=== PATIENT | female | born 1995 | race Caucasian/White ===

== ENCOUNTER 2018-01-27 16:02 | Emergency (ER) | payer MEDICAID, SELFPAY ==
[2018-01-27 16:07] VITALS: BP 147/98; PULSE 88; RESP 16; TEMP 36.8; O2SAT 97
--- NOTE | 2018-01-27 16:16 | DI.RAD_ITS ---
SYMPTOM/DIAGNOSIS: PAIN, S/P FALL LEFT ANKLE: Three views. No acute fracture or dislocation is seen. No radiopaque foreign bodies are seen in the soft tissues. There is mild soft tissue swelling about the ankle laterally. IMPRESSION: No acute fracture or dislocation.
--- NOTE | 2018-01-27 16:17 | W.ED.GENAD ---
Discharge Plan Disposition Patient Disposition: HOME Condition: Stable Discharge Details Chief Complaint: Orthopedic Clinical Impression: Left ankle sprain Primary Care Provider: Latisha Gallego ED Provider: Charly Ott Home Meds and New Rx's Prescriptions: Continue meclizine 25 MG tablet 25 mg PO DAILY PRNRF: 0 sumatriptan succinate 100 MG tablet 100 mg PO PRN PRNRF: 0 lamotrigine 100 MG tablet 150 mg PO DIRECTED RF: 0 quetiapine [Seroquel] 200 MG tablet 100 mg PO DAILY RF: 0 levalbuterol tartrate [Xopenex HFA] 15 GM HFA aerosol inhaler 2 puff Inhalation PRN PRNRF: 0 ibuprofen 600 MG tablet 600 mg PO QID PRN PRNQty: 40 RF: 0 acetaminophen [Acetaminophen Extra Strength] 500 MG tablet 500 mg PO PRN PRNRF: 0 [id number] [Excedrin Migraine] 1 EACH tablet 2 ea PO PRN PRNRF: 0 Discharge Instructions Instructions: Ankle Sprain (ED) Discharge Data Discharge Physician: Charly Ott Medical Decision Making MDM Narrative Medical decision making narrative: 22 yo female states last Wednesday she tripped as she stepped in a hole, did not hit head or have loc, but rolled the left ankle and has had pain since. I suspect she has a sprain but will xray to eval for fx. xray negative and she is bearing weight so do not feel she needs crutches. advised f/u with pcp if pain continues Differential Diagnosis sprain, strain, fx Imaging Data Radiologic Study: Attestation: I personally reviewed and interpreted this imaging study as follows: Imaging: X-Ray My impression: no acute findings Radiologist's impression: no acute findings HPI General Mode of arrival: ambulatory. Date/Time Provider Initiated Documentation: 01/27/18 16:15. Limitations to Documentation: no limitations. Information obtained by: patient. History of Present Illness 22 year old F presents to the emergency department with the chief complaint of left ankle pain, described as mild, with intensity rated at 2. Quality is described as aching, and is localized to the left and lower extremity. Patient reports no radiation. Patient started experiencing this day(s) (5) and it has been constant. Rest improves symptom(s), Movement worsens symptoms . Patient notes no other symptoms.. Patient did receive the following treatments prior to arrival, none Related Data Home Medications Medication Instructions Recorded Confirmed lamotrigine 150 mg PO DIRECTED 01/04/13 01/27/18 sumatriptan succinate 100 mg PO PRN PRN 01/04/13 01/27/18 levalbuterol tartrate [Xopenex HFA] 2 puff INHALATION PRN PRN 08/11/14 01/27/18 quetiapine [Seroquel] 100 mg PO DAILY 08/11/14 01/27/18 meclizine 25 mg PO DAILY PRN tab-cap 06/12/15 01/27/18 acetaminophen [Acetaminophen Extra 500 mg PO PRN PRN 11/16/16 01/27/18 Strength] [id number]-fecfjnmqkfjft-gjujsxch 2 ea PO PRN PRN 11/16/16 01/27/18 [Excedrin Migraine] Previous Rx's Medication Instructions Recorded ibuprofen 600 mg PO QID PRN PRN #40 tab 08/11/14 Allergies Allergy/AdvReac Type Severity Reaction Status Date / Time Sulfa (Sulfonamide AdvReac Intermediate flatus Unverified 01/27/18 16:10 Antibiotics) General Stated Complaint: Orthopedic GABE: 4 Review of Systems Review of Systems All systems reviewed & are unremarkable except as noted in HPI and below Constitutional Denies chills, Denies fever(s) and Denies weakness Eyes Patient Denies loss of vision ENT Denies change in voice Cardiovascular Denies chest pain and Denies dyspnea Respiratory Denies dyspnea Gastrointestinal Denies abdominal pain, Denies nausea and Denies vomiting Genitourinary Denies dysuria Musculoskeletal Denies joint swelling Integumentary/Breasts Denies rash Neurologic Denies loss of vision and Denies weakness Psychiatric Denies depression Endocrine Denies cold intolerance and Denies heat intolerance Allergic/Immunologic Reports urticaria [facility] Social History Smoking/Tobacco Use Status: Never Exam Const General: no acute distress Orientation: alert HENMT Head: normal to inspection Ears: external ears normal General nose exam: external nose normal Mouth: moist mucous membranes Eyes General: appearance normal, both eyes and all related structures Neck Neck: normal visual inspection Resp Effort & Inspection: normal respiratory effort and able to speak in complete sentences Cardio Rate: regular rate Skin General skin exam: no rashes or lesions noted Neuro General: alert and oriented x3 Extrem General: full ROM, normal capillary refill and other (pain over left distal fibula) Psych Mental Status: mental status grossly normal Course Vital Signs Temperature 36.8 C 01/27/18 16:07 Pulse 88 01/27/18 16:07 Respiratory Rate 16 01/27/18 16:07 Blood Pressure 147/98 H 01/27/18 16:07 Pulse Oximetry 97 01/27/18 16:07 Temperature 36.8 C 01/27/18 16:07 Pulse 88 01/27/18 16:07 Respiratory Rate 16 01/27/18 16:07 Blood Pressure 147/98 H 01/27/18 16:07 Pulse Oximetry 97 01/27/18 16:07
--- NOTE | 2018-01-27 16:50 | DI.VRAD_ITS ---
EXAM: XR Left Ankle Complete, 3 or More Views CLINICAL HISTORY: 22 years old, female; Pain; Ankle; Left; Patient HX: Pain/twisting after fall TECHNIQUE: Frontal, lateral and oblique views of the left ankle. COMPARISON: No relevant prior studies available. FINDINGS: Bones/joints: Symmetric ankle mortise. No acute fracture. No dislocation. Soft tissues: Swelling of the ankle soft tissues. IMPRESSION: No fracture. Dictated and Authenticated by: Billy Barcenas MD. Ordering:HANNAH BREWER MD
== END 2018-01-27 17:22 | disposition home or self-care (01) ==
PROVIDERS: Emergency Provider Emergency Medicine; PCP Nurse Practitioner Family
DX: S93.402A Sprain of unspecified ligament of left ankle, initial encounter (principal); W17.2XXA Fall into hole, initial encounter; X50.9XXA Other and unspecified overexertion or strenuous movements or postures, initial encounter
CPT/HCPCS: 99283; 73610

== ENCOUNTER 2018-07-22 09:58 | Outpatient (CLI) | payer MEDICAID, SELFPAY ==
[2018-07-22 10:40] LABS: Abs Immature Grans 0.01 k/cumm (0.0-0.09); Absolute Basophil Count 0.02 k/cumm (0.0-0.2); Absolute Eosinophil Count 0.11 k/cumm (0.0-0.7); Absolute Lymphocyte Count 1.84 k/cumm (1.2-3.4); Absolute Monocyte Count 0.32 k/cumm (0.11-0.7); Absolute Neutrophil Count 3.25 k/cumm (1.2-6.7); Basophils % 0.4; HCT 42.1 % (36.0-46.0); HGB 14.7 g/dL (12.0-15.5); Immature Grans % 0.2; Lymphocytes % 33.2; Mean Corp. HGB Concentration 34.9 g/dL (32.0-36.0); Mean Corpuscular Hemoglobin 31.7 pg (27.0-33.0); Mean Corpuscular Volume 90.9 fL (80-95); Mean Platelet Volume 9.2 fL (8.0-11.0); Monocytes % 5.8; Neutrophils % 58.4; Platelet Count 230 x1000/uL (130-400); RBC 4.63 m/cumm (4.00-5.20); RBC Distribution Width 12.4 % (11.7-14.6); White Blood Cell Count 5.55 k/cumm (4.4-10.8)
[2018-07-22 15:21] LABS: ALT 18 U/L (12-78); AST 14 U/L (15-37); Albumin 4.4 g/dL (3.4-5.0); Alkaline Phosphatase 78 U/L (46-116); Anion Gap 12.7 mmol/L (3-11); BUN 14 mg/dL (7-18); Bilirubin, Total 0.4 mg/dL (0.2-1.0); CO2 24.3 mmol/L (21.0-32.0); CREATININE 0.98 mg/dL (0.55-1.02); Calcium 9.4 mg/dL (8.5-10.1); Chloride 104 mmol/L (98-107); Cholesterol 183 mg/dL (50-200); Glucose 92 mg/dL (70-100); HDL Cholesterol 52 mg/dL (40-60); LDL CHOLESTEROL 118 mg/dL (<100); Sodium 141 mmol/L (136-145); TSH 1.58 uIU/mL (0.358-3.74); Total Protein 7.4 g/dL (6.4-8.2); Triglyceride 79 mg/dL (30-150)
== END 2018-07-22 10:18 ==
PROVIDERS: PCP Nurse Practitioner Family; Visit Provider Clinical Nurse Specialist Psychiatric/Mental Health
DX: F31.32 Bipolar disorder, current episode depressed, moderate (principal)
CPT/HCPCS: 36415; 80053; 80061; 83721; 84443; 85025

== ENCOUNTER 2020-03-24 10:32 | Emergency (ER) | payer MEDICAID, SELFPAY ==
[2020-03-24 10:39] VITALS: BP 130/76; PULSE 124; RESP 20; TEMP 36.4; O2SAT 98
[2020-03-24] MEDS: Lidocaine 1% Multi-Dose 50 ML VIAL (11:08)
--- NOTE | 2020-03-24 11:09 | W.ED.GENAD ---
Discharge Plan Disposition Patient Disposition: HOME Condition: Good Discharge Details Clinical Impression: Cellulitis, Abscess Primary Care Provider: Juan Godinez ED Provider: Gagan Seals Home Meds and New Rx's Prescriptions: New clindamycin HCl 150 mg capsule 450 mg PO QID 10 Days Qty: 120 RF: 0 Continued meclizine 25 MG tablet 25 mg PO DAILY PRNRF: 0 sumatriptan succinate 100 MG tablet 100 mg PO PRN PRNRF: 0 lamotrigine 100 MG tablet 200 mg PO BID RF: 0 quetiapine [Seroquel] 200 MG tablet 200 mg PO DAILY RF: 0 levalbuterol tartrate [Xopenex HFA] 15 GM HFA aerosol inhaler 2 puff Inhalation PRN PRNRF: 0 Discharge Instructions Instructions: Cellulitis (ED), Abscess (ED) Additional Instructions: At this time you have an infection of the skin, as well as an abscess. We have been able to drain the abscess. Please leave the packing in for the next few days. Please take the antibiotic as directed. Make sure to take it with a yogurt with live cultures like activity to prevent any diarrhea. It will likely come out on its own as the body heals from the inside out. Please do not get it wet or soak in any water. Please follow-up closely with your primary care provider in the next 5 days to have it reassessed. If you notice any redness, spreading redness, worsening discharge, worsening pain or fever please return immediately. If you notice any worsening of your symptoms, or any new symptoms such as vomiting, diarrhea, fever, chills, shortness of breath, chest pain, numbness, weakness, or fainting , please return immediately to the emergency department for reevaluation. Please follow up with your primary care provider as soon as possible for reassessment and reevaluation. As always, it was a pleasure participating in your medical care today. Stand Alone Forms: Work Release Referrals: Juan Godinez, [employer] [Primary Care Provider] - Medical Decision Making 25-year-old female with a past medical history of asthma, anxiety, presents today for evaluation of skin infection and abscess. Patient states that for the last few days she has noted redness in her left groin, and then patient noted yesterday that it began to drain. She was able to get a fair bit of drainage out. However it has continued to drain so she came in for further evaluation. She does admit to a fever yesterday but that has resolved today. She has not taken any Tylenol or Motrin. She denies any nausea vomiting or diarrhea. She denies any change in mental status. Or feeling confused. No other complaints at this time. Not on any current antibiotics. She denies vaginal discharge or urinary complaints. Physical exam demonstrates mild cellulitis in addition to palpable abscess half of which is draining. Notable amount of purulent drainage was removed and suctioned without complication, a second small 0.5 cm incision was made more laterally and a notable amount of drainage was removed from there as well. After purulent fluid was removed the 2 areas were packed with iodoform gauze, patient tolerated this very well. Pain notably improved/resolved. No signs of necrotizing fasciitis or Marcelo's gangrene. No fever. Patient was dealing with a notable amount of anxiety, after long discussion with her and then subsequent procedure the patient heart rate normalized. She is afebrile. No evidence of systemic illness. Patient will be started on clindamycin and given her first dose here, discussed red flags which to return, as well as the importance of close follow-up for packing removal. Additionally I discussed the case with the patient's mother. She is in agreement with the plan. I have extensively reviewed the treatment plan and discharge instructions with the patient. I have addressed all patient concerns at this time. The patient was made aware of what symptoms to monitor for that would warrant a return to the emergency department. Discussed the plan with the patient, they demonstrate verbal understanding and agreement with our assessment and plan at this time. HPI General Date/Time Provider Initiated Documentation: 03/24/20 10:32. HPI Narrative: 25-year-old female with a past medical history of asthma, anxiety, presents today for evaluation of skin infection and abscess. Patient states that for the last few days she has noted redness in her left groin, and then patient noted yesterday that it began to drain. She was able to get a fair bit of drainage out. However it has continued to drain so she came in for further evaluation. She does admit to a fever yesterday but that has resolved today. She has not taken any Tylenol or Motrin. She denies any nausea vomiting or diarrhea. She denies any change in mental status. Or feeling confused. No other complaints at this time. Not on any current antibiotics. She denies vaginal discharge or urinary complaints. Related Data Home Medications Medication Instructions Recorded Confirmed lamotrigine 200 mg PO BID 01/04/13 03/24/20 sumatriptan succinate 100 mg PO PRN PRN 01/04/13 03/24/20 levalbuterol tartrate [Xopenex HFA] 2 puff INHALATION PRN PRN 08/11/14 03/24/20 quetiapine [Seroquel] 200 mg PO DAILY 08/11/14 03/24/20 meclizine 25 mg PO DAILY PRN tab-cap 06/12/15 03/24/20 clindamycin HCl 450 mg PO QID 10 Days #120 cap 03/24/20 Previous Rx's Medication Instructions Recorded clindamycin HCl 450 mg PO QID 10 Days #120 cap 03/24/20 Allergies Allergy/AdvReac Type Severity Reaction Status Date / Time Sulfa (Sulfonamide AdvReac Intermediate flatus Unverified 03/24/20 10:47 Antibiotics) General Stated Complaint: Cellulitis GABE: 3 Review of Systems All systems reviewed & are unremarkable except as noted in HPI and below PFSH Social History Smoking/Tobacco Use Status: Never Smoking risk assessment performed?: Yes Alcohol Intake: never Drug use: Never Substance use type: does not use Do you feel safe at home: Yes Do you feel safe in your relationship?: Yes Exam Narrative Exam Narrative: 1.Const: Well-nourished, Well-developed, appearing stated age 2.Eyes: PERRL, no conjunctival injection, and symmetrical lids. 3.ENT: Atraumatic external nose and ears. Moist MM. Neck: Symmetric, trachea midline, No thyromegaly. 4.CVS: +S1/S2, No murmurs or gallops. Peripheral pulses 2+ and equal in all extremities. Brisk capillary refill in all extremities. 5.RESP: Unlabored respiratory effort. Clear to auscultation bilaterally. No wheezes rales or rhonchi 6.GI: Soft, Nontender/Nondistended, No hepatosplenomegaly. No guarding or rebound. 7.MSK: Normocephalic/Atraumatic, Extremities w/o deformity or ttp No cyanosis or clubbing, Normal movement of all extremities 8.Skin: The patient's left proximal thigh/groin demonstrates mild redness of the leg fully 5 to 6 cm, and a width of 12 to 14 cm. There is a single draining lesion with purulent discharge noted. Medial aspect just about midline. Additionally there is mild firmness that extends slightly more laterally. Bedside ultrasound shows a small amount of fluid collection in that area as well in addition to cobblestoning. No crepitus, no subcutaneous crepitus. No skin breakdown otherwise. No active or passive pain with movement of the muscles of the thigh or groin. 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 Sensation grossly intact, no focal neurologic deficits. 10.Psych: (AAO) x3. Appropriate mood and affect Course Vital Signs Vital signs: Vital Signs Temperature 36.4 C L 03/24/20 10:39 Pulse 124 H 03/24/20 10:39 Respiratory Rate 03/24/20 10:39 Blood Pressure 130/76 03/24/20 10:39 Pulse Oximetry 98 03/24/20 10:39 Temperature 36.4 C L 03/24/20 10:39 Temperature Source Skin 03/24/20 10:39 Pulse 124 H 03/24/20 10:39 Respiratory Rate 03/24/20 10:39 Respiratory Effort Non-Labored 03/24/20 10:45 Blood Pressure 130/76 03/24/20 10:39 Blood Pressure Position Sitting 03/24/20 10:39 Pulse Oximetry 98 03/24/20 10:39 Oxygen Delivery Method Room Air 03/24/20 10:39 Oxygen Flow Rate 0 03/24/20 10:39 Pain Level 6 03/24/20 10:39 Lab/Test Results Lab/Test Results: 03/24/20 10:50 Abdomen Wound Culture - Pending 03/24/20 10:50 Abdomen Gram Stain - Pending Procedures Abscess I/D Site: Abdomen Side (if applicable): Left Local Anesthetic: Lidocaine 1% Amount of anesthesia used (mL): 5 Technique: Incised with #11 Blade Amount of fluid expressed (mL): 10 Irrigation: Yes Packing used?: Iodoform
--- NOTE | 2020-03-24 11:10 | NUR.NOTE ---
Nursing Note:assisted provider with I&D lower abdomen.
[2020-03-24] MEDS: Clindamycin 150 MG CAP, 12 CAPS/BTL 450 MG PO (11:18)
[2020-03-24 11:24] VITALS: BP 106/65; PULSE 108; RESP 18; TEMP 37.2; O2SAT 97
[2020-03-24 11:34] VITALS: BP 106/65; PULSE 108; RESP 18; TEMP 37.2; O2SAT 97
== END 2020-03-24 11:30 | disposition home or self-care (01) ==
LOC: ER 11:24
PROVIDERS: Emergency Provider Student in an Organized Health Care Education/Training Program; PCP Nurse Practitioner Family
DX: L03.314 Cellulitis of groin (principal); L02.214 Cutaneous abscess of groin; B95.61 Methicillin susceptible Staphylococcus aureus infection as the cause of diseases classified elsewhere
CPT/HCPCS: 10061; 87077; 87070; 87186; 87205

== ENCOUNTER 2020-03-25 18:31 | Inpatient (IN) | payer MEDICAID, SELFPAY ==
[2020-03-25 18:38] VITALS: BP 127/78; PULSE 104; RESP 20; TEMP 36.1; O2SAT 99
--- NOTE | 2020-03-25 18:48 | ED.GENADUL_ITS ---
Discharge Plan Disposition Patient Disposition: [facility] INPATIENT Condition: Stable Discharge Details Clinical Impression: Cellulitis, Failure of outpatient treatment Admit Date/Time: 03/25/20 19:18 Admit Provider: Nathan Connolly Attending Provider: Nathan Connolly Primary Care Provider: Juan Godinez ED Provider: Gagan Seals Medical Decision Making 25-year-old female with a past medical history of anxiety, bipolar, who presents today for wound recheck. I saw the patient yesterday she had redness and cellulitis and an abscess on her lower abdomen in the superficial adipose. Incision and drainage in 2 locations included a notable amount of purulence, she was started on clindamycin, and she has been taking them every 6 hours 450 mg as directed. Unfortunately in spite of this she has had worsening drainage spreading of the redness and worsening pain. She admits to chills but has remained afebrile. She denies any abdominal pain aside for the superficial pain on the pannus. Exam demonstrates worsening redness spreading of the redness lateral, continued drainage, slight worsening induration. No fluctuance there. No indication for repeat incision and drainage as the 2 sites are actively draining. Cultures just returned positive for staph areas, pending sensitivities. Patient has chills but no fever. She is mildly tachycardic, however she does have a notable component of anxiety which was present on her last visit 2. No subcutaneous crepitus, abdominal tenderness, no signs or symptoms of necrotizing fasciitis. I feel that the patient's symptoms are indicative of mild cellulitis unresponsive to outpatient management. I do feel she would benefit from IV antibiotics and inpatient steroids with IV antibiotics. We will gently rehydrate, contact the hospitalist for admission. I did contact the patient's mother as well and discussed the case with her. Both in agreement. Discussed the case with Dr. Connolly, who agrees with admission. I have extensively reviewed the treatment plan with the patient. I have addressed all patient concerns at this time. I have also discussed the plan with the admitting physician and they agree with the current assessment and plan and have agreed to assume responsibility for the patient. All parties demonstrate verbal understanding and agreement with our assessment and plan at this time. HPI General Date/Time Provider Initiated Documentation: 03/25/20 18:34 . HPI Narrative: 25-year-old female with a past medical history of anxiety, bipolar, who presents today for wound recheck. I saw the patient yesterday she had redness and cellulitis and an abscess on her lower abdomen in the superficial adipose. Incision and drainage in 2 locations included a notable amount of purulence, she was started on clindamycin, and she has been taking them every 6 hours 450 mg as directed. Unfortunately in spite of this she has had worsening drainage spreading of the redness and worsening pain. She admits to chills but has remained afebrile. She denies any abdominal pain aside for the superficial pain on the pannus. Related Data Home Medications Medication Instructions Recorded Confirmed lamotrigine 200 mg PO BID 01/04/13 03/25/20 sumatriptan succinate 100 mg PO PRN PRN 01/04/13 03/25/20 levalbuterol tartrate [Xopenex HFA] 2 puff INHALATION PRN PRN 08/11/14 03/25/20 quetiapine [Seroquel] 200 mg PO HS 08/11/14 03/25/20 meclizine 25 mg PO DAILY PRN tab-cap 06/12/15 03/25/20 clindamycin HCl 450 mg PO QID 10 Days #120 cap 03/24/20 03/25/20 magnesium oxide 500 mg PO HS 03/25/20 03/25/20 riboflavin (vitamin B2) [Vitamin 200 mg PO BID 03/25/20 03/25/20 B-2] Previous Rx's Medication Instructions Recorded clindamycin HCl 450 mg PO QID 10 Days #120 cap 03/24/20 Allergies Allergy/AdvReac Type Severity Reaction Status Date / Time Sulfa (Sulfonamide AdvReac Intermediate flatus Unverified 03/25/20 18:42 Antibiotics) General Stated Complaint: Cellulitis GABE: 3 Review of Systems All systems reviewed & are unremarkable except as noted in HPI and below PFSH Social History Smoking/Tobacco Use Status: Never Smoking risk assessment performed?: Yes Alcohol Intake: never Drug use: Never Substance use type: does not use Do you feel safe at home: Yes Do you feel safe in your relationship?: Yes Exam Narrative Exam Narrative: 1.Const: Well-nourished, Well-developed, appearing stated age 2.Eyes: PERRL, no conjunctival injection, and symmetrical lids. 3.ENT: Atraumatic external nose and ears. Moist MM. Neck: Symmetric, trachea midline, No thyromegaly. 4.CVS: +S1/S2, No murmurs or gallops. Peripheral pulses 2+ and equal in all extremities. Brisk capillary refill in all extremities. 5.RESP: Unlabored respiratory effort. Clear to auscultation bilaterally. No wheezes rales or rhonchi 6.GI: Soft, Nontender/Nondistended, No hepatosplenomegaly. No guarding or rebound. 7.MSK: Normocephalic/Atraumatic, Extremities w/o deformity or ttp No cyanosis or clubbing, Normal movement of all extremities 8.Skin: The patient's redness is still present but it is actually extended both superiorly and laterally compared to what was left alone a few centimeters. There is still drainage coming from both incision site, and there is also slight worsening of induration laterally from the lateralmost incision site. No subcutaneous crepitus, no abdominal tenderness, just the superficial tenderness of the skin. 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 Sensation grossly intact, no focal neurologic deficits. 10.Psych: (AAO) x3. Appropriate mood and affect Course Vital Signs Vital signs: Vital Signs Temperature 36.1 C L 03/25/20 18:38 Pulse 104 H 03/25/20 18:38 Respiratory Rate 20 03/25/20 18:38 Blood Pressure 127/78 03/25/20 18:38 Pulse Oximetry 99 03/25/20 18:38 Temperature 36.1 C L 03/25/20 18:38 Temperature Source Skin 03/25/20 18:38 Pulse 104 H 03/25/20 18:38 Respiratory Rate 20 03/25/20 18:38 Respiratory Effort Non-Labored 03/25/20 18:44 Blood Pressure 127/78 03/25/20 18:38 Blood Pressure Position Sitting 03/25/20 18:38 Pulse Oximetry 99 03/25/20 18:38 Oxygen Delivery Method Room Air 03/25/20 18:38 Oxygen Flow Rate 0 03/25/20 18:38 Lab/Test Results Lab/Test Results: 03/25/20 18:43 Blood Blood Culture - Pending 03/25/20 18:43 Blood Blood Culture - Pending
--- NOTE | 2020-03-25 19:08 | HPE_ITS ---
Date of service: 03/25/20 Time of Service: 19:08 Assessment and Plan Assessment and plan (1) Abscess: Status: Acute Assessment and plan: Extensive SQ abcess of pannus, possible MRSA. Will continue Vanco and await sensitivities. Per ER verbal to myself the I&D entailed extensive exploration of wound for pockets so at this point I don't think we need imaging or further exploration. But if fails to respond promptly to IV Vanco will image and obtain surgical consult. History of Present Illness History of Present Illness Chief Complaint: cellulitis Narrative: 25 female seen yesterday with abcess/cellulitis of lower abdominal pannus (thinks it started with ingrown hair). 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 Returns with worsening redness and induration. Note that cxx from yesterday return Staph aureues, sensitivities pending. Ordered for loading dos Vanoc and admitted for further management. Note that all labs are pending at this time. Review of Systems All systems reviewed & are unremarkable except as noted in HPI and below PFSH Social History Smoking/Tobacco Use Status: Never Smoking risk assessment performed?: Yes Alcohol Intake: never Drug use: Never Substance use type: does not use Do you feel safe at home: Yes Do you feel safe in your relationship?: Yes Meds Home Medications and Allergies Home Medications Medication Instructions Recorded Confirmed Type lamotrigine 200 mg PO BID 01/04/13 03/25/20 History sumatriptan succinate 100 mg PO PRN PRN 01/04/13 03/25/20 History levalbuterol tartrate [Xopenex HFA] 2 puff INHALATION PRN PRN 08/11/14 03/25/20 History quetiapine [Seroquel] 200 mg PO HS 08/11/14 03/25/20 History meclizine 25 mg PO DAILY PRN tab-cap 06/12/15 03/25/20 History clindamycin HCl 450 mg PO QID 10 Days #120 cap 03/24/20 03/25/20 Rx magnesium oxide 500 mg PO HS 03/25/20 03/25/20 History riboflavin (vitamin B2) [Vitamin 200 mg PO BID 03/25/20 03/25/20 History B-2] Allergies Allergy/AdvReac Type Severity Reaction Status Date / Time Sulfa (Sulfonamide AdvReac Intermediate flatus Unverified 03/25/20 18:42 Antibiotics) Exam Narrative Exam Narrative: 127/78, 104, 36.1, 20, 99% RA. HEENT unremarkable; neck supple; lungs clear, heart tachy/regualr w/o MRG; abdomen etnesive erythema and induration along lower abdomen with some extension to left groin. Incisions draining, no crepitus, quite tender. Neuro Ox3, very anxious, nonfocal Results Labs Result diagrams: 03/25/20 18:42 03/25/20 18:42 Last Vital Signs Temp 36.1 C L 03/25/20 18:38 Pulse 104 H 03/25/20 18:38 Resp 20 03/25/20 18:38 BP 127/78 03/25/20 18:38 Pulse Ox 99 03/25/20 18:38 COVID-19 Screening Have you, or household traveled for leisure in last 14 days?: No
[2020-03-25] MEDS: Ketorolac 30 MG/ML VIAL IVP (19:26)
[2020-03-25] MEDS: Normal Saline 1,000 ML 1000 ML IV (19:28)
[2020-03-25 19:31] LABS: Abs Immature Grans 0.07 10^3/uL (0.0-0.06); Absolute Basophil Count 0.02 10^3/uL (0.0-0.2); Absolute Eosinophil Count 0.12 10^3/uL (0.0-0.7); Absolute Lymphocyte Count 1.98 10^3/uL (1.2-3.4); Absolute Monocyte Count 0.73 10^3/uL (0.1-0.8); Absolute Neutrophil Count 8.68 10^3/uL (1.2-6.7); Basophils % 0.2; HCT 36.6 % (36.0-46.0); HGB 12.2 g/dL (11.2-15.7); Immature Grans % 0.6; Lymphocytes % 17.1; MCHC 33.3 % (32.0-36.0); MCV 92.9 fL (80-95); MPV 9.4 fL (8.0-11.0); Monocytes % 6.3; Neutrophils % 74.8; Nucleated RBC 0 %; Platelet Count 270 10^3/uL (130-400); RBC 3.94 10^6/uL (3.93-5.22); RDW 11.9 % (11.7-14.6); RDW-SD 40.5 fL
[2020-03-25 19:50] LABS: ALT 13 U/L (14-59); AST 8 U/L (15-37); Albumin 3.5 g/dL (3.4-5.0); Alkaline Phosphatase 82 U/L (46-116); Anion Gap 8.1 mmol/L (3-11); BUN 16 mg/dL (7-18); Bilirubin, Total 0.3 mg/dL (0.2-1.0); CO2 28.9 mmol/L (21.0-32.0); CREATININE 0.93 mg/dL (0.55-1.02); Calcium 8.7 mg/dL (8.5-10.1); Chloride 103 mmol/L (98-107); Glucose 111 mg/dL (74-106); Potassium 3.2 mmol/L (3.5-5.1); Sodium 140 mmol/L (136-145); Total Protein 7.5 g/dL (6.4-8.2)
[2020-03-25 21:09] VITALS: BP 107/72; PULSE 98; RESP 18; TEMP 36.6; O2SAT 100
[2020-03-25 21:10] VITALS: BP 107/72; PULSE 97; RESP 18; TEMP 36.6; O2SAT 100
[2020-03-25] MEDS: Magnesium Oxide 400 MG TAB PO (22:49)
[2020-03-25] MEDS: Acetaminophen 325 MG TAB 650 MG PO (22:49)
[2020-03-25] MEDS: Potassium Chloride 20 MEQ TABCR PO (22:49)
[2020-03-25] MEDS: QUEtiapine 25 MG TAB 200 MG PO (22:50)
[2020-03-25] MEDS: lamoTRIgine 25 MG TAB 200 MG PO (22:50)
[2020-03-26 07:13] VITALS: BP 104/71; PULSE 89; RESP 16; TEMP 36.6; O2SAT 99
[2020-03-26 07:28] LABS: CREATININE 0.91 mg/dL (0.55-1.02)
[2020-03-26 08:05] LABS: Abs Immature Grans 0.07 10^3/uL (0.0-0.06); Absolute Basophil Count 0.03 10^3/uL (0.0-0.2); Absolute Eosinophil Count 0.09 10^3/uL (0.0-0.7); Absolute Lymphocyte Count 1.22 10^3/uL (1.2-3.4); Basophils % 0.3; HCT 32.3 % (36.0-46.0); HGB 10.8 g/dL (11.2-15.7); Immature Grans % 0.8; Lymphocytes % 13.4; MCH 31.1 pg (27.0-33.0); MCHC 33.4 % (32.0-36.0); MCV 93.1 fL (80-95); MPV 9.6 fL (8.0-11.0); Monocytes % 7.7; Neutrophils % 76.8; Nucleated RBC 0 %; Platelet Count 257 10^3/uL (130-400); RBC 3.47 10^6/uL (3.93-5.22); RDW 12.1 % (11.7-14.6); RDW-SD 41.6 fL; WBC 9.11 10^3/uL (4.4-10.8)
[2020-03-26 08:12] LABS: Anion Gap 6.1 mmol/L (3-11); BUN 13 mg/dL (7-18); CO2 27.9 mmol/L (21.0-32.0); Calcium 8.1 mg/dL (8.5-10.1); Chloride 110 mmol/L (98-107); Glucose 88 mg/dL (74-106); Sodium 144 mmol/L (136-145)
[2020-03-26 08:26] LABS: C-Reactive Protein 19.94 mg/dL (0.0-0.3)
--- NOTE | 2020-03-26 08:47 | PDOC.CMIN ---
- If Service Date Differs Date of service: 03/26/20 Time of Service: 17:40 Care Management Initial Assess REASON FOR HOSPITALIZATION:: Absess, cellulitis PAST MEDICAL HISTORY/PAST SURGICAL HISTORY:: 25 female seen yesterday with abcess/cellulitis of lower abdominal pannus (thinks it started with ingrown hair). S/p I&D one day [employer] and started on Clindamycin 450 q6. Returns with worsening redness and induration. Note that cxx from yesterday return Staph aureues, sensitivities pending. Ordered for loading dos Vanoc and admitted for further management. PREVIOUS FUNCTIONAL STATUS/SOCIAL/FAMILY SUPPORTS:: Jaylyn resides in [place], [place] with her parents. She is employed at [employer]. She is independent at baseline in the community. CURRENT FUNCTIONAL STATUS:: Up independently in room, pain controlled. CM continues to follow. Has patient been provided with info about the portal/API?: Yes Did the patient sign up for the portal?: No CODE STATUS:: Full Code INSURANCE COVERAGE / FINANCIAL ISSUES:: Medicaid CURRENT HOME/COMMUNITY SERVICES/EQUIPMENT:: None currently. PRIMARY CARE PHYSICIAN:: Juan Godinez. POTENTIAL DISCHARGE NEEDS:: Review discharge instructions, discuss Ask Me Three. PATIENT/FAMILY EDUCATION NEEDS:: Review discharge instructions, discuss Ask Me Three. ANTICIPATED BARRIERS TO DISCHARGE:: None identified. TRANSPORTATION:: Via private vehicle with family. PLAN:: Awaiting lab results and cultures to determine antibiotic therapy plan, per MD. CM continues to follow. Anticiate Jaylyn will return home when ready per MD on a oral course of antibiotics or to the infusion room; dependent on course, duration and frequency of antibiotics.
[2020-03-26] MEDS: lamoTRIgine 100 MG TAB 200 MG PO ×2 (08:53→21:10)
[2020-03-26 09:51] LABS: Procalcitonin 0.1 ng/mL
[2020-03-26] MEDS: ceFAZolin 2 GM/50 ML BAG IVPB ×2 (11:19→18:05)
--- NOTE | 2020-03-26 11:23 | PHA.REVIEW ---
Pharmacy Admission Review - Admission Clinical Review (Last Reviewed 03/25/20 @ 19:11 by Nathan Connolly MD) Cellulitis (Acute) Abscess (Acute) Failure of outpatient treatment (Acute) Sulfa (Sulfonamide Antibiotics) Adverse Reaction (Intermediate, Unverified 03/25/20 18:42) flatus Height 5 ft 6 in Weight 81.647 kg - Renal Dosing Renal Dosing: BUN 13 mg/dL (7-18) 03/26/20 07:10 Creatinine 0.91 mg/dL (0.55-1.02) 03/26/20 07:10 Medications needing adjustments: Reviewed (Crcl ~86.9 mL/min current meds okay) - Anticoagulation Anticoagulation: Hgb 10.8 g/dL (11.2-15.7) L 03/26/20 07:10 Hct 32.3 % (36.0-46.0) L 03/26/20 07:10 Plt Count 257 10^3/uL (130-400) 03/26/20 07:10 Creatinine 0.91 mg/dL (0.55-1.02) 03/26/20 07:10 DVT Prohphylaxis: Reviewed - Opiate Usage Evaluate Pain Scale/Pains Meds: Reviewed Scheduled Bowel Reg ordered if on Opiates?: No (will mention to provider) - Relevant Labs Sodium 144 mmol/L (136-145) 03/26/20 07:10 Potassium 4.0 mmol/L (3.5-5.1) D 03/26/20 07:10 Chloride 110 mmol/L (98-107) H 03/26/20 07:10 C-Reactive Protein 19.94 mg/dL (0.0-0.3) H 03/26/20 07:10 Electrolytes, C-Reactive P, ESR: Reviewed - DM Control DM Control: Glucose 88 mg/dL (74-106) 03/26/20 07:10 Hemoglobin A1c 5.0 % (<5.7) 03/26/20 07:10 Insulin Dosing: N/A (elevated on admission, within normal limits this morning A1c 5) - Heart Failure/RI EF%, ROGERIO's, B-Blockers, Diuretics: N/A - BP Control BP Control: Blood Pressure 104/71 If elevated: N/A - Qtc Review If Elevated: N/A - IV to PO Switch IV Medications: Reviewed - Home Meds Home Med List reviewed: Reviewed Relevent Home Meds Not ordered & why?: clindamycin(failed this/other abx ordered), levalbuterol (PRN), meclizine (PRN), sumatriptan (PRN) - Current meds Current Medication Order Review: Reviewed - Comments Comments/Follow Ups: Watch VS, labs and for med changes (need of BM meds) Antibiotic Activity - Pharmacy Antibiotic Review Pharmacy Antibiotic Activity: Antibiotic de-escalation (Wound culture from 03/24 growing staph. Vanco changed to cefazolin based due sensitivities. Blood and urine cultures pending.)
[2020-03-26 11:45] LABS: Bilirubin Negative (Negative); Blood Large (Negative); Clarity Clear (Clear); Glucose Negative (Negative); Ketones Negative (Negative); Leukocyte Esterase Negative (Negative); Nitrite Negative (Negative); Urobilinogen 0.2 EU/dL (Up TO 0.2)
[2020-03-26 11:56] LABS: *AMPHETAMINES SCREEN URINE Negative (Negative); *BARBITURATES SCREEN URINE Negative (Negative); *BENZODIAZEPINES SCREEN URINE Negative (Negative); Cannabinoids THC Negative (Negative); Cocaine Screen,Urine Negative (Negative); METHADONE URINE SCREEN Negative (Negative); OPIATES URINE SCREEN Negative (Negative)
[2020-03-26 11:57] LABS: Tricyclic Antidepressants Negative (Negative)
[2020-03-26 11:58] LABS: HCG Qual (Urine) Negative
[2020-03-26 12:01] LABS: Bacteria Few HPF (Negative); C & S Indicated? C&S Done As Ordered; Casts Negative LPF (Negative); Crystals Negative HPF (Negative); Epithelial Cells Few HPF (Negative); Mucus Negative (Negative); RBC 0-2 HPF (0-2); WBC 0-2 HPF (0-5)
[2020-03-26 15:03] LABS: COVID-19 RT-PCR UVMMC Result Negative (Negative)
--- NOTE | 2020-03-26 15:10 | W.PM.PROGNOT ---
Date of Service Date of service: 03/26/20 Time of Service: 15:11 Assessment and Plan Assessment and plan (1) Abdominal wall cellulitis: Status: Acute Assessment and plan: As we know the results of the wound culture from I&D at the ED (c/w MSSA), it is safe to assume that the culprit of this is the same. Antibiotics switched to cefazolin. Continue monitoring wounds, WBC, blood cultures. (2) Abscess: Status: Acute Assessment and plan: s/p I&D prior to admission in the ED. Wound C&S c/w MSSA. As above. (3) Bipolar disorder: Status: Chronic Assessment and plan: Continue outpatient medications (seroquel, lamictal) (4) Anxiety disorder: Status: Chronic Assessment and plan: Continue outpatient therapy. (5) COVID-19 ruled out: Status: Ruled-out (6) DVT prophylaxis: Status: Acute Assessment and plan: Not required in an ambulatory 25 year old female. (7) Discharge planning issues: Status: Acute Assessment and plan: Full code. Admit to inpatient status. Subjective Subjective Interval history since last seen: Ms Garrett feels better today. She denies dizziness, chest pain, shortness of breath, nausea. Pain is controlled. Yellow discharge from one of the wounds; the other one is dry. Afebrile. COVID-19 neg. Exam Narrative Exam Narrative: General: Very pleasant female, sitting up in bed, in no distress HEENT: EOMI, MMM Heart: RRR, no m/r/g Lungs: CTAB Abdomen: pannus with diffuse erythema, seemingly worse in LLQ, LLQ wound packed Extremities: no edema BLEs Objective Last Vital Signs Temp 36.6 C 03/26/20 07:13 Pulse 89 03/26/20 07:13 Resp 16 03/26/20 07:13 BP 104/71 03/26/20 07:13 Pulse Ox 99 03/26/20 07:13 Laboratory Results - last 24 hr 03/25/20 03/25/20 03/25/20 19:19 19:19 20:08 WBC 11.60 H RBC 3.94 Hgb 12.2 Hct 36.6 MCV 92.9 MCH 31.0 MCHC 33.3 RDW 11.9 Plt Count 270 MPV 9.4 Immature Gran % 0.6 Neutrophils % 74.8 Lymphocytes % 17.1 Monocytes % 6.3 Eosinophils % 1.0 Basophils % 0.2 Nucleated RBC % 0 Absolute Neutrophils 8.68 H Absolute Lymphocytes 1.98 Absolute Monocytes 0.73 Absolute Eosinophils 0.12 Absolute Basophils 0.02 Sodium 140 Potassium 3.2 L Chloride 103 Carbon Dioxide 28.9 Anion Gap 8.1 BUN 16 Creatinine 0.93 Estimated GFR/1.73 m2 >= 60.00 Glucose 111 H Hemoglobin A1c Calcium 8.7 Total Bilirubin 0.3 AST 8 L ALT 13 L Alkaline Phosphatase 82 C-Reactive Protein Total Protein 7.5 Albumin 3.5 Procalcitonin Urine Color Urine Clarity Urine pH Ur Specific [place] Urine Protein Urine Ketones Urine Blood Urine Nitrite Urine Bilirubin Urine Urobilinogen Ur Leukocyte Esterase Urine RBC Urine WBC Ur Epithelial Cells Urine Crystals Urine Bacteria Urine Casts Urine Mucus Ur Culture Indicated? Urine Glucose Urine HCG, Qual Urine Opiates Screen Urine Methadone Screen Ur Barbiturates Screen Ur Tricyclics Screen Ur Amphetamines Screen U Benzodiazepines Scrn Urine Cocaine Screen Ur THC Screen COVID-19 PCR Negative Nasopharyn COVID-19 PCR Not Applicable Ref Test Perform Site [facility] 03/26/20 03/26/20 03/26/20 07:10 07:10 07:10 WBC 9.11 RBC 3.47 L Hgb 10.8 L Hct 32.3 L MCV 93.1 MCH 31.1 MCHC 33.4 RDW 12.1 Plt Count 257 MPV 9.6 Immature Gran % 0.8 Neutrophils % 76.8 Lymphocytes % 13.4 Monocytes % 7.7 Eosinophils % 1.0 Basophils % 0.3 Nucleated RBC % 0 Absolute Neutrophils 7.00 H Absolute Lymphocytes 1.22 Absolute Monocytes 0.70 Absolute Eosinophils 0.09 Absolute Basophils 0.03 Sodium 144 Potassium 4.0 D Chloride 110 H Carbon Dioxide 27.9 Anion Gap 6.1 BUN 13 Creatinine 0.91 Estimated GFR/1.73 m2 >= 60.00 Glucose 88 Hemoglobin A1c Calcium 8.1 L Total Bilirubin AST ALT Alkaline Phosphatase C-Reactive Protein 19.94 H Total Protein Albumin Procalcitonin 0.1 Urine Color Urine Clarity Urine pH Ur Specific [place] Urine Protein Urine Ketones Urine Blood Urine Nitrite Urine Bilirubin Urine Urobilinogen Ur Leukocyte Esterase Urine RBC Urine WBC Ur Epithelial Cells Urine Crystals Urine Bacteria Urine Casts Urine Mucus Ur Culture Indicated? Urine Glucose Urine HCG, Qual Urine Opiates Screen Urine Methadone Screen Ur Barbiturates Screen Ur Tricyclics Screen Ur Amphetamines Screen U Benzodiazepines Scrn Urine Cocaine Screen Ur THC Screen COVID-19 PCR Nasopharyn COVID-19 PCR Ref Test Perform Site 03/26/20 03/26/20 03/26/20 07:10 11:10 11:10 WBC RBC Hgb Hct MCV MCH MCHC RDW Plt Count MPV Immature Gran % Neutrophils % Lymphocytes % Monocytes % Eosinophils % Basophils % Nucleated RBC % Absolute Neutrophils Absolute Lymphocytes Absolute Monocytes Absolute Eosinophils Absolute Basophils Sodium Potassium Chloride Carbon Dioxide Anion Gap BUN Creatinine Estimated GFR/1.73 m2 Glucose Hemoglobin A1c 5.0 Calcium Total Bilirubin AST ALT Alkaline Phosphatase C-Reactive Protein Total Protein Albumin Procalcitonin Urine Color Yellow Urine Clarity Clear Urine pH 7.0 Ur Specific [place] 1.010 Urine Protein Negative Urine Ketones Negative Urine Blood Large H Urine Nitrite Negative Urine Bilirubin Negative Urine Urobilinogen 0.2 Ur Leukocyte Esterase Negative Urine RBC 0-2 Urine WBC 0-2 Ur Epithelial Cells Few Urine Crystals Negative Urine Bacteria Few Urine Casts Negative Urine Mucus Negative Ur Culture Indicated? C&s done as ordered Urine Glucose Negative Urine HCG, Qual Urine Opiates Screen Negative Urine Methadone Screen Negative Ur Barbiturates Screen Negative Ur Tricyclics Screen Negative Ur Amphetamines Screen Negative U Benzodiazepines Scrn Negative Urine Cocaine Screen Negative Ur THC Screen Negative COVID-19 PCR [facility] COVID-19 PCR Ref Test Perform Site 03/26/20 11:10 WBC RBC Hgb Hct MCV MCH MCHC RDW Plt Count MPV Immature Gran % Neutrophils % Lymphocytes % Monocytes % Eosinophils % Basophils % Nucleated RBC % Absolute Neutrophils Absolute Lymphocytes Absolute Monocytes Absolute Eosinophils Absolute Basophils Sodium Potassium Chloride Carbon Dioxide Anion Gap BUN Creatinine Estimated GFR/1.73 m2 Glucose Hemoglobin A1c Calcium Total Bilirubin AST ALT Alkaline Phosphatase C-Reactive Protein Total Protein Albumin Procalcitonin Urine Color Urine Clarity Urine pH Ur Specific [place] Urine Protein Urine Ketones Urine Blood Urine Nitrite Urine Bilirubin Urine Urobilinogen Ur Leukocyte Esterase Urine RBC Urine WBC Ur Epithelial Cells Urine Crystals Urine Bacteria Urine Casts Urine Mucus Ur Culture Indicated? Urine Glucose Urine HCG, Qual Negative Urine Opiates Screen Urine Methadone Screen Ur Barbiturates Screen Ur Tricyclics Screen Ur Amphetamines Screen U Benzodiazepines Scrn Urine Cocaine Screen Ur THC Screen COVID-19 PCR Nasopharyn COVID-19 PCR Ref Test Perform Site
--- NOTE | 2020-03-26 15:59 | CHAPLAIN ---
I had a short visit with Jaylyn to introduce myself and explain my role. I'll continue to visit.
[2020-03-26] MEDS: Acetaminophen 325 MG TAB 650 MG PO ×2 (18:10→21:10)
[2020-03-26] MEDS: QUEtiapine 100 MG TAB 200 MG PO (21:09)
[2020-03-26] MEDS: Normal Saline Flush 10 ML SYR IVP (21:11)
[2020-03-26 21:29] VITALS: BP 113/76; PULSE 86; RESP 18; TEMP 36.9; O2SAT 99
[2020-03-26] MEDS: Magnesium Oxide 400 MG TAB PO (21:33)
[2020-03-27] MEDS: ceFAZolin 2 GM/50 ML BAG IVPB ×3 (01:52→17:28)
[2020-03-27] MEDS: Normal Saline 500 ML 30 ML IVPB ×2 (01:52→09:38)
[2020-03-27] MEDS: Normal Saline Flush 10 ML SYR IVP ×5 (01:53→21:54)
[2020-03-27 03:50] VITALS: BP 105/63; PULSE 85; RESP 17; TEMP 36.5; O2SAT 96
[2020-03-27 07:09] LABS: Abs Immature Grans 0.08 10^3/uL (0.0-0.06); Absolute Basophil Count 0.03 10^3/uL (0.0-0.2); Absolute Eosinophil Count 0.11 10^3/uL (0.0-0.7); Absolute Monocyte Count 0.61 10^3/uL (0.1-0.8); Absolute Neutrophil Count 5.22 10^3/uL (1.2-6.7); Basophils % 0.4; Eosinophils % 1.4; HCT 31.5 % (36.0-46.0); HGB 10.4 g/dL (11.2-15.7); Lymphocytes % 21.9; MCH 30.4 pg (27.0-33.0); MCV 92.1 fL (80-95); MPV 9.1 fL (8.0-11.0); Monocytes % 7.9; Neutrophils % 67.4; Nucleated RBC 0 %; Platelet Count 254 10^3/uL (130-400); RBC 3.42 10^6/uL (3.93-5.22); RDW 12.1 % (11.7-14.6); RDW-SD 40.9 fL; WBC 7.75 10^3/uL (4.4-10.8)
[2020-03-27 07:12] VITALS: BP 108/71; PULSE 76; RESP 17; TEMP 36.7; O2SAT 98
[2020-03-27 07:28] LABS: Anion Gap 7.1 mmol/L (3-11); BUN 10 mg/dL (7-18); CO2 27.9 mmol/L (21.0-32.0); CREATININE 0.96 mg/dL (0.55-1.02); Calcium 8.2 mg/dL (8.5-10.1); Chloride 107 mmol/L (98-107); Glucose 92 mg/dL (74-106); Magnesium 2.3 mg/dL (1.8-2.4); Potassium 3.8 mmol/L (3.5-5.1); Sodium 142 mmol/L (136-145)
[2020-03-27] MEDS: lamoTRIgine 100 MG TAB 200 MG PO ×2 (08:17→10:10)
--- NOTE | 2020-03-27 14:56 | PGE_ITS ---
Date of Service Date of service: 03/27/20 Time of Service: 14:56 Assessment and Plan Assessment and plan (1) Abdominal wall cellulitis: Status: Acute Assessment and plan: Continue cefazolin (day 2). Consult general surgery for the suspected forming abscess and wound care recommendations. Continue monitoring wounds, WBC, blood cultures. (2) Abscess: Status: Acute Assessment and plan: s/p I&D prior to admission in the ED. Wound C&S c/w MSSA. As above. (3) Bipolar disorder: Status: Chronic Assessment and plan: Continue outpatient medications (seroquel, lamictal) (4) Anxiety disorder: Status: Chronic Assessment and plan: Continue outpatient therapy. (5) COVID-19 ruled out: Status: Ruled-out (6) DVT prophylaxis: Status: Acute Assessment and plan: Not required in an ambulatory 25 year old female. (7) Discharge planning issues: Status: Acute Assessment and plan: Full code. Likely discharge home tomorrow. Subjective Subjective Interval history since last seen: Ms Garrett states that her abdominal wall feels less painful and less itchy. She still notes pain and swelling in one area in LLQ. Denies dizziness, chest pain, shortness of breath, nausea, vomiting. Exam Narrative Exam Narrative: General: Very pleasant female, sitting up in bed, in no distress HEENT: EOMI, MMM Heart: RRR, no m/r/g Lungs: CTAB Abdomen: pannus with significantly less erythema; the area in the LLQ now appears more circumscribed/indurated, but no identifiable collection. Extremities: no edema BLEs Objective Last Vital Signs Temp 36.7 C 03/27/20 07:12 Pulse 76 03/27/20 07:12 Resp 17 03/27/20 07:12 BP 108/71 03/27/20 07:12 Pulse Ox 98 03/27/20 07:12 Laboratory Results - last 24 hr 03/25/20 03/27/20 03/27/20 20:08 06:45 06:45 WBC 7.75 RBC 3.42 L Hgb 10.4 L Hct 31.5 L MCV 92.1 MCH 30.4 MCHC 33.0 RDW 12.1 Plt Count 254 MPV 9.1 Immature Gran % 1.0 Neutrophils % 67.4 Lymphocytes % 21.9 Monocytes % 7.9 Eosinophils % 1.4 Basophils % 0.4 Nucleated RBC % 0 Absolute Neutrophils 5.22 Absolute Lymphocytes 1.70 Absolute Monocytes 0.61 Absolute Eosinophils 0.11 Absolute Basophils 0.03 Sodium 142 Potassium 3.8 Chloride 107 Carbon Dioxide 27.9 Anion Gap 7.1 BUN 10 Creatinine 0.96 Estimated GFR/1.73 m2 >= 60.00 Glucose 92 Calcium 8.2 L Magnesium 2.3 COVID-19 PCR Negative Nasopharyn COVID-19 PCR Not Applicable Ref Test Perform Site [facility]
[2020-03-27 16:08] VITALS: BP 118/78; PULSE 82; RESP 18; TEMP 36.9; O2SAT 98
--- NOTE | 2020-03-27 19:50 | PDOC.CMPRO ---
- If Service Date Differs Date of service: 03/27/20 Time of Service: 19:50 Care Management Progress Note S/O: Jaylyn was sitting up in bed when CM met with her. She was pleasant and receptive to conversation. When CM asked how she was feeling, she asked, in which way. Physically she described as haylie but emotionally, she revealed much more. She shared that she is bipolar and has been hospitalized at [facility] and other facilities, the last time being 6 years ago. She was able to describe the difficulties she had then but was happy to be able to say she was on a good regimen now and was doing well. Jaylyn also shared that she really misses her family and hopes to be able to go home today. A: Jaylyn is a 25 year old woman admitted for cellulitis P. Jaylyn will likely return home with no new services. She will follow up with her PCP and plan of care. CM will continue to support Jaylyn and her family and assess for discharge concerns.
--- NOTE | 2020-03-27 21:52 | W.SURGCON ---
Date of service: 03/27/20 Time of Service: 21:53 Assessment and Plan Assessment and plan (1) Abdominal wall cellulitis: Status: Acute (2) Cellulitis: Status: Acute (3) Abscess: Status: Acute Assessment and plan: -flush w/ saline BID. packing change BID. US done at bedside and don't see any other abscesses. -abx were adjusted yesterday by Dr. Siddiqi. cultures show MSSA. -will see how she progresses in the next 24hrs. History of Present Illness Narrative: pt waws admitted w/ a soft tissues abscess and cellulitis. She has not had these in the past. She is not diabetic. no steriods. She is not a smoker. She has not had MRSA in the past adn no risk factors for it. Consults Consult date: 03/27/20 Requesting physician: Hawa Siddiqi Review of Systems All systems reviewed & are unremarkable except as noted in HPI and below PFSH Medical History Acquired subluxation of right patella ADHD Anxiety disorder Asthma Bipolar disorder Fatty liver Hypothyroidism Multiple drug overdose Social History Smoking/Tobacco Use Status: Never Smoking risk assessment performed?: Yes Alcohol Intake: never Drug use: Never Substance use type: does not use Do you feel safe at home: Yes Do you feel safe in your relationship?: Yes Exam Const General: cooperative, healthy appearing, comfortable, no acute distress, well developed and well groomed Nutritional Appearance: average body habitus and well nourished Orientation: alert, awake and oriented x3 HENMT Head: normal to inspection, normocephalic and atraumatic Ears: hearing grossly normal bilaterally and external ears normal General nose exam: external nose normal Face and sinus: normal facial exam and sinuses nontender Mouth: oral mucosae normal, lip normal, tongue normal and moist mucous membranes Teeth and gingiva: dentition normal Eyes General: appearance normal, both eyes and all related structures Conjunctivae: conjunctivae normal Sclera: sclerae normal Pupils: PERRL Neck Neck: normal visual inspection and full ROM Chest Chest: normal inspection of the chest Resp Effort & Inspection: normal respiratory effort, able to speak in complete sentences, no cough, no nasal flaring, not tachypneic and no use of accessory muscles Auscultation: clear to auscultation bilaterally, no rales, no rhonchi and no wheezes Cardio Jugular venous pressure: no JVD Rate: regular rate Rhythm: regular rhythm GI Inspection: normal to inspection, no edema and non-distended Palpation: soft, no masses, tender and No ascites Auscultation: normal bowel sounds Other: in her suprapubic area and in LLQ there is an area of erthymea and tenderness. She had x2 areas where an I&D was done by the ED. the one on the left side is closed over. the suprpubic wound is explored and is .5x1.0x .5cm.this is irrigated and packed. US was done and shows generized edema, but no pockets. Skin General skin exam: no rashes or lesions noted Trauma: no lacerations or abrasions Neuro General: patient alert, patient oriented x3, oriented, gait normal, moves all extremities, no focal motor deficits and CN's II-XI intact bilaterally Cognition: normal cognition Speech: speech normal Gait: normal gait Motor: muscle tone normal throughout Extrem General: normal to inspection, full ROM and no clubbing, cyanosis or edema Psych Appearance: grossly normal and well kempt Mental Status: mental status grossly normal Speech and Movement: speech and movement normal Affect: normal affect Results Last Vital Signs Temp 36.9 C 03/27/20 16:08 Pulse 82 03/27/20 16:08 Resp 18 03/27/20 16:08 BP 118/78 03/27/20 16:08 Pulse Ox 98 03/27/20 16:08 Labs Result diagrams: 03/27/20 06:45 03/27/20 06:45 Labs: Laboratory Results - last 24 hr 03/27/20 03/27/20 06:45 06:45 WBC 7.75 RBC 3.42 L Hgb 10.4 L Hct 31.5 L MCV 92.1 MCH 30.4 MCHC 33.0 RDW 12.1 Plt Count 254 MPV 9.1 Immature Gran % 1.0 Neutrophils % 67.4 Lymphocytes % 21.9 Monocytes % 7.9 Eosinophils % 1.4 Basophils % 0.4 Nucleated RBC % 0 Absolute Neutrophils 5.22 Absolute Lymphocytes 1.70 Absolute Monocytes 0.61 Absolute Eosinophils 0.11 Absolute Basophils 0.03 Sodium 142 Potassium 3.8 Chloride 107 Carbon Dioxide 27.9 Anion Gap 7.1 BUN 10 Creatinine 0.96 Estimated GFR/1.73 m2 >= 60.00 Glucose 92 Calcium 8.2 L Magnesium 2.3
[2020-03-27] MEDS: Acetaminophen 325 MG TAB 650 MG PO (21:55)
[2020-03-27] MEDS: Magnesium Oxide 400 MG TAB PO (21:57)
[2020-03-27] MEDS: QUEtiapine 100 MG TAB 200 MG PO (21:58)
[2020-03-27 22:21] VITALS: BP 119/80; PULSE 89; RESP 18; TEMP 37; O2SAT 98
[2020-03-28] MEDS: ceFAZolin 2 GM/50 ML BAG IVPB ×3 (02:15→17:14)
[2020-03-28] MEDS: Normal Saline Flush 10 ML SYR IVP ×3 (02:16→17:14)
[2020-03-28 07:35] LABS: Anion Gap 8.1 mmol/L (3-11); BUN 11 mg/dL (7-18); CO2 27.9 mmol/L (21.0-32.0); CREATININE 0.94 mg/dL (0.55-1.02); Calcium 8.5 mg/dL (8.5-10.1); Chloride 106 mmol/L (98-107); Glucose 92 mg/dL (74-106); Magnesium 2.5 mg/dL (1.8-2.4); Potassium 4.4 mmol/L (3.5-5.1); Sodium 142 mmol/L (136-145)
[2020-03-28 07:44] VITALS: BP 106/74; PULSE 82; RESP 16; TEMP 36.5; O2SAT 95
[2020-03-28 07:51] LABS: C-Reactive Protein 7.52 mg/dL (0.0-0.3)
--- NOTE | 2020-03-28 08:59 | PDOC.CMDIS ---
- If Service Date Differs Date of service: 03/29/20 Time of Service: 09:03 LACE Index Scoring Tool - Questions: Length of Stay (in days): 3 Acuity (Admit via E.D.?): Yes E.D. Visits: 2 - Answers: Total Score: 8 Risk of Readmission: Low Risk Care Management Discharge Reason for Hospitalization: Absess, cellulitis Discharge Plan: Jaylyn will return home with no new services. She reports confidence in managing her daily dressing changes. She will follow up with her PCP and plan of care. She will transport via private vehicle with family. Patient/Family Education Needs: Review discharge instructions, discuss Ask Me Three.
[2020-03-28 09:00] VITALS: O2SAT 95
[2020-03-28] MEDS: lamoTRIgine 100 MG TAB 400 MG PO (10:09)
[2020-03-28] MEDS: Acetaminophen 325 MG TAB 650 MG PO ×2 (10:09→19:25)
--- NOTE | 2020-03-28 12:12 | W.NUTRFU ---
Date of service: 03/28/20 Time of Service: 12:12 Nutritional Follow up NOTE: 25 year old female admitted with abcess of pannus. BMI 29 indicates overweight status. Following regular meal plan with excellent intake. Not at nutritional risk at this time. Will continue to follow. Time Spent in Nutritional Counseling and Treatment: 0
--- NOTE | 2020-03-28 13:48 | W.PM.PROGNOT ---
Date of Service Date of service: 03/28/20 Time of Service: 13:49 Assessment and Plan Assessment and plan (1) Abdominal wall cellulitis: Status: Acute Assessment and plan: Continue cefazolin (day 3), will downstep to keflex at discharge, anticipate another 10 - 14 days. Consult general surgery for the suspected forming abscess and wound care recommendations. Continue monitoring wounds, WBC, blood cultures with no growth. (2) Abscess: Status: Acute Assessment and plan: s/p I&D prior to admission in the ED. Wound C&S c/w MSSA. As above. (3) Bipolar disorder: Status: Chronic Assessment and plan: Continue outpatient medications (seroquel, lamictal) (4) Anxiety disorder: Status: Chronic Assessment and plan: Continue outpatient therapy. (5) COVID-19 ruled out: Status: Ruled-out (6) DVT prophylaxis: Status: Acute Assessment and plan: Not required in an ambulatory 25 year old female. (7) Discharge planning issues: Status: Acute Assessment and plan: Full code. Likely discharge home tomorrow. case discussed with Dr Siddiqi Subjective Subjective Patient reports: no new complaints, feels better, tolerating liquids well, tolerating a regular diet, voiding w/o difficulty, bowel movement and afebrile Exam Narrative Exam Narrative: General: white female, sitting up in bed, in no distress, pink warm dry and well perfused HEENT: atraumatic, normocephalic, EOMI, MMM Heart: RRR, no murmurs Lungs: respirations even and unlabored. Abdomen: pannus with erythema at the skin markings; indurated extending from her left lower abdomen to right side approx 5 cm beyond wick, but no fluctuance consistent with abscess or collection. Extremities: no edema BLEs, moves all extremities. Objective Last Vital Signs Temp 36.5 C 03/28/20 07:44 Pulse 82 03/28/20 07:44 Resp 16 03/28/20 07:44 BP 106/74 03/28/20 07:44 Pulse Ox 95 03/28/20 09:00 Laboratory Results - last 24 hr 03/28/20 07:07 Sodium 142 Potassium 4.4 Chloride 106 Carbon Dioxide 27.9 Anion Gap 8.1 BUN 11 Creatinine 0.94 Estimated GFR/1.73 m2 >= 60.00 Glucose 92 Calcium 8.5 Magnesium 2.5 H C-Reactive Protein 7.52 H
--- NOTE | 2020-03-28 14:47 | W.PM.PROGNOT ---
Date of Service Date of service: 03/28/20 Time of Service: 14:48 Assessment and Plan Assessment and plan (1) Abdominal wall cellulitis: Status: Acute Assessment and plan: continue abx for another 24 hrs. local wound care pro-biotics supportive care pt has minimal pain (2) Cellulitis: Status: Acute (3) Abscess: Status: Acute Subjective Subjective Interval history since last seen: Patient seen and examined. She notes less tenderness. sHe thinks the redness is slightly improved. She denies fever or chills. She denies any diarrhea. She denies any thrush. no headaches. No CP or SOB. no productive cough. no dysuria. no leg pain or swelling. Exam Resp Effort & Inspection: normal respiratory effort and able to speak in complete sentences Auscultation: clear to auscultation bilaterally GI Other: No n/v. tolerating po's. no diarrhea. no thrush decrease in pain adn redness. Extrem General: normal to inspection, full ROM and no clubbing, cyanosis or edema Objective Last Vital Signs Temp 36.5 C 03/28/20 07:44 Pulse 82 03/28/20 07:44 Resp 16 03/28/20 07:44 BP 106/74 03/28/20 07:44 Pulse Ox 95 03/28/20 09:00 Laboratory Results - last 24 hr 03/28/20 07:07 Sodium 142 Potassium 4.4 Chloride 106 Carbon Dioxide 27.9 Anion Gap 8.1 BUN 11 Creatinine 0.94 Estimated GFR/1.73 m2 >= 60.00 Glucose 92 Calcium 8.5 Magnesium 2.5 H C-Reactive Protein 7.52 H
--- NOTE | 2020-03-28 15:08 | CMPROGNOTE_ITS ---
Care Management Progress Note S/O: Discharge cancelled due to concern for abscess, surgical consult initiated, CM continues to follow. Per provider: Continue cefazolin (day 3), will downstep to keflex at discharge, anticipate another 10 - 14 days. Consult general surgery for the suspected forming abscess and wound care recommendations. Continue monitoring wounds, WBC, blood cultures with no growth. A: Jaylyn is a 25 year old woman admitted to [facility] for cellulitis P. Jaylyn will likely return home with no new services. She will follow up with her PCP and plan of care. CM will continue to support Jaylyn and her family and assess for discharge concerns.
[2020-03-28 15:43] VITALS: BP 110/73; PULSE 74; RESP 20; TEMP 36.7; O2SAT 95
[2020-03-28] MEDS: QUEtiapine 100 MG TAB 200 MG PO (21:22)
[2020-03-29] MEDS: Normal Saline Flush 10 ML SYR IVP ×3 (03:02→11:03)
[2020-03-29] MEDS: ceFAZolin 2 GM/50 ML BAG IVPB ×2 (03:02→10:36)
[2020-03-29 07:05] VITALS: BP 112/73; PULSE 77; RESP 19; TEMP 35.6; O2SAT 96
[2020-03-29] MEDS: lamoTRIgine 100 MG TAB 400 MG PO (08:11)
[2020-03-29 09:22] LABS: Abs Immature Grans 0.31 10^3/uL (0.0-0.06); Absolute Basophil Count 0.06 10^3/uL (0.0-0.2); Absolute Lymphocyte Count 1.97 10^3/uL (1.2-3.4); Absolute Monocyte Count 0.28 10^3/uL (0.1-0.8); Absolute Neutrophil Count 4.55 10^3/uL (1.2-6.7); Basophils % 0.8; Eosinophils % 1.4; HCT 37.4 % (36.0-46.0); HGB 12.7 g/dL (11.2-15.7); Immature Grans % 4.3; Lymphocytes % 27.1; MCV 91.2 fL (80-95); MPV 8.6 fL (8.0-11.0); Monocytes % 3.9; Neutrophils % 62.5; Nucleated RBC 0 %; Platelet Count 328 10^3/uL (130-400); RDW 11.7 % (11.7-14.6); RDW-SD 38.9 fL; WBC 7.27 10^3/uL (4.4-10.8)
[2020-03-29 09:30] LABS: Anion Gap 4.5 mmol/L (3-11); BUN 12 mg/dL (7-18); CO2 29.5 mmol/L (21.0-32.0); CREATININE 1.01 mg/dL (0.55-1.02); Calcium 9.1 mg/dL (8.5-10.1); Chloride 104 mmol/L (98-107); Glucose 126 mg/dL (74-106); Potassium 4.1 mmol/L (3.5-5.1); Sodium 138 mmol/L (136-145)
[2020-03-29 09:32] LABS: C-Reactive Protein 4.44 mg/dL (0.0-0.3)
[2020-03-29] MEDS: Normal Saline 500 ML 100 ML IVPB (10:36)
--- NOTE | 2020-03-29 10:41 | W.PM.DS.N ---
Date of service: 03/29/20 Time of Service: 10:41 DS: Diagnosis Discharge Diagnosis (1) Abdominal wall cellulitis: Status: Acute (2) Cellulitis: Status: Acute (3) Abscess: Status: Acute Discharge Plan Disposition Patient Disposition: HOME Condition: Stable Discharge Details Reason For Visit: ABCESS/CELLULITIS Admit Date/Time: 03/26/20 18:30 Admit Provider: Nathan Connolly Attending Provider: Nathan Connolly Primary Care Provider: Juan Godinez Home Meds and New Rx's Prescriptions: New Bio-K plus 50 billion cell Capsule,Delayed Release(Dr/Ec) 1 cap PO DAILY Qty: 30 RF: 0 cephalexin [Keflex] 500 mg capsule 500 mg PO QID 5 Days Qty: 20 RF: 0 tramadol [Ultram] 50 mg tablet 50 mg PO Q6H PRNQty: 7 RF: 0 ibuprofen 600 mg tablet 600 mg PO Q6H PRNQty: 60 RF: 5 Continued meclizine 25 MG tablet 25 mg PO DAILY PRNRF: 0 sumatriptan succinate 100 MG tablet 100 mg PO PRN PRNRF: 0 lamotrigine 100 MG tablet 400 mg PO DAILY RF: 0 quetiapine [Seroquel] 200 MG tablet 200 mg PO HS RF: 0 levalbuterol tartrate [Xopenex HFA] 15 GM HFA aerosol inhaler 2 puff Inhalation PRN PRNRF: 0 riboflavin (vitamin B2) [Vitamin B-2] 100 mg tablet 200 mg PO BID RF: 0 magnesium oxide 500 mg capsule 500 mg PO HS RF: 0 Discontinued clindamycin HCl 150 mg capsule 450 mg PO QID 10 Days Qty: 120 RF: 0 Discharge Instructions Additional Instructions: Keep an ice bag on the incision. 20 minutes on and 20 minutes off. Ice keeps the swelling down and swelling causes pain. Make sure you wrap the ice pack in a towel and don't apply directly to the skin. -Irrigate wound with saline solution twice a day. Pack with packing daily. -Follow-up with Dr. Beck next wednesday -supplies: Sterile saline, syringe for irrigation, cotton-tipped applicator, packing material, tape, 4 x 4 gauze pads. Wash hands thoroughly before doing the packing and after the packing. -regular diet -Yogurt daily while on antibiotic -It is ok to shower. No bathe, soaking, swimming or hot tubs -Keep ice on the incision. Ice keeps the swelling down and swelling is what causes pain. -You may find that your appetite is smaller. Eat 3-6 small meals throughout the day. It is important to drink lots of water after surgery, 6-10 glasses a day. -We do want you up walking, at least 5-6 times per day. This is very important to prevent pneumonia and blood clots. You can climb stairs, take them slowly. -You may find that you are tired after surgery- this is normal. -please do not smoke for a minimum of 72 hours after surgery. Your health care provider has covered your wound with a wet-to-dry dressing. With this type of dressing, a wet (or moist) gauze dressing is put on your wound and allowed to dry. Wound drainage and tissue can be removed when you take off the old dressing. Follow any instructions you are given on how to change the dressing. Use this sheet as a reminder. What to Expect at Home Your provider will tell you how often you should change your dressing at home. As the wound heals, you should not need as much gauze or packing gauze. Removing the Old Dressing Follow these steps to remove your dressing: ? Wash your hands thoroughly with soap and warm water before and after each dressing change. Remove the old dressing. If it is sticking to your skin, wet it with warm water to loosen it. ? Remove the gauze pads or packing tape from inside your wound. Changing Your Dressing Follow these steps to put a new dressing on: ? Place the gauze pads or packing tape in your wound. Carefully fill in the wound and any spaces under the skin. Use a cotton tip applicator to gently push the packing material into the wound. ? Cover the wet gauze or packing tape with a large dry dressing pad. Use tape or rolled gauze to hold this dressing in place. ? Wash your hands again when you are finished. When to Call the Doctor Call your doctor if you have any of these changes around your wound: ? Worsening redness ? More pain ? Swelling ? Bleeding ? It is larger or deeper ? It looks dried out or dark ? The drainage is increasing ? The drainage has a bad smell Also call your doctor if: ? Your temperature is 100.5?F (38?C), or higher, for more than 4 hours ? Drainage is coming from or around the wound ? Drainage is not decreasing after 3 to 5 days ? Drainage is increasing ? Drainage becomes thick, tierney, yellow, or smells bad ? Referrals: Charis Beck DO [OSTEOPATHIC DOCTOR] - 04/03/20 11:00 am Activity:: No lifting over 10 pounds Equipment/Supplies:: Sterile saline, syringes, Diet:: Normal Diet DS: Summary Status at Discharge Functional status at discharge: independent ambulation Overall status at discharge: patient is progressing back to baseline Mental Status: mental status grossly normal Speech and Movement: speech and movement normal Mood: congruent mood Affect: normal affect Exam Psych Mental Status: mental status grossly normal Speech and Movement: speech and movement normal Mood: congruent mood Affect: normal affect DS: Data Vitals/I&O Vitals and I&O: Vital Signs Temperature 35.6 C L 03/29/20 07:05 Temperature Source Tympanic 03/29/20 07:05 Pulse 77 03/29/20 07:05 Pulse Rhythm Regular 03/29/20 03:05 Respiratory Rate 19 03/29/20 07:05 Respiratory Effort 03/29/20 03:05 Respiratory Depth Normal 03/29/20 03:05 Respiratory Pattern Normal 03/29/20 03:05 Blood Pressure 112/73 03/29/20 07:05 Blood Pressure Position Sitting 03/25/20 18:38 Pulse Oximetry 96 03/29/20 07:05 Oxygen Delivery Method Room Air 03/29/20 07:05 Oxygen Flow Rate 0 03/29/20 07:05 Pain Level 1 03/29/20 08:10 Comment 03/27/20 16:00 Intake & Output 03/28/20 03/28/20 03/29/20 11:59 23:59 11:59 Intake Total 575 / 1115 540 / 1115 290 / 290 Balance 575 / 1115 540 / 1115 290 / 290 Intake: IV 335 / 395 60 / 395 50 / 50 Oral 240 / 720 480 / 720 240 / 240 Other: Urine Appearance Clear Comment pt voiding independently VOIDED IN TOILET AND FLUSHED RN did not assess urine Stool Size Moderate Stool Characteristics Soft Formed Brown Voiding Methods Toilet Toilet Data Completed and Pending Labs on day of discharge: Labs from last 24 hours 03/29/20 03/29/20 03/29/20 09:15 09:15 09:15 WBC 7.27 RBC 4.10 Hgb 12.7 D Hct 37.4 MCV 91.2 MCH 31.0 MCHC 34.0 RDW 11.7 Plt Count 328 MPV 8.6 Immature Gran % 4.3 Neutrophils % 62.5 Lymphocytes % 27.1 Monocytes % 3.9 Eosinophils % 1.4 Basophils % 0.8 Nucleated RBC % 0 Absolute Neutrophils 4.55 Absolute Lymphocytes 1.97 Absolute Monocytes 0.28 Absolute Eosinophils 0.10 Absolute Basophils 0.06 Sodium 138 Potassium 4.1 Chloride 104 Carbon Dioxide 29.5 Anion Gap 4.5 BUN 12 Creatinine 1.01 Estimated GFR/1.73 m2 >= 60.00 Glucose 126 H Calcium 9.1 C-Reactive Protein 4.44 H Preliminary micro results at discharge 03/25/20 19:10 Blood Culture - Preliminary Blood NO GROWTH 72 HOURS 03/25/20 19:19 Blood Culture - Preliminary Blood NO GROWTH 72 HOURS [facility] Medical History Acquired subluxation of right patella ADHD Anxiety disorder Asthma Bipolar disorder Fatty liver Hypothyroidism Multiple drug overdose Social History Smoking/Tobacco Use Status: Never Smoking risk assessment performed?: Yes Alcohol Intake: never Drug use: Never Substance use type: does not use Do you feel safe at home: Yes Do you feel safe in your relationship?: Yes
--- NOTE | 2020-04-08 16:41 | W.PM.DSUDISC ---
Discharge Plan Disposition Patient Disposition: HOME Condition: Stable Discharge Details Reason For Visit: ABCESS/CELLULITIS Admit Date/Time: 03/26/20 18:30 Admit Provider: Nathan Connolly Attending Provider: Nathan Connolly Primary Care Provider: Juan Godinez Hospital Course Hospital Course: Jaylyn is a 25-year-old female who was admitted from the ED with abdominal wall abscess and cellulitis. She is not diabetic, she is not a smoker, she is not on steroids. She is not immunocompromised. She is never had MRSA. She was started on clindamycin as an outpatient but it continued to have more pain and a larger developing abscess. ER I&D was performed by the ED ED department please see their report for the procedure details. She was admitted to the hospital and kept on vancomycin. Cultures did come back that it was MSSA. She was changed to Kefzol. She continued to have persistent pain and swelling in the left lower quadrant inspection was consulted. The I&D site shows no tracking to the left lower quadrant. The I&D site is in the suprapubic region. There is edema of the tissues noted on ultrasound but no fluid cavities that require further drainage. After 36 hours on Ancef it did improve. Patient was discharged home after 48 hours after being on Ancef. She was discharged home on Keflex. She will continue daily irrigation and packing at home. She has family to help her with packing. She will stay on a probiotic for 30 days and told to prevent C. difficile and antibiotic associated diarrhea. She has ibuprofen and ice for pain. She is Ultram for breakthrough pain she will follow-up with myself in a week's time. There were no complications or concerns. Patient understood all of her instructions. Prescriptions were sent to her pharmacy of choice. Please see the chart for postop instructions and medications. Patient discharged home to be with her parents. Patient discharged in stable and satisfactory condition. Home Meds and New Rx's Prescriptions: New Bio-K plus 50 billion cell Capsule,Delayed Release(Dr/Ec) 1 cap PO DAILY Qty: 30 RF: 0 tramadol [Ultram] 50 mg tablet 50 mg PO Q6H PRNQty: 7 RF: 0 ibuprofen 600 mg tablet 600 mg PO Q6H PRNQty: 60 RF: 5 Continued meclizine 25 MG tablet 25 mg PO DAILY PRNRF: 0 sumatriptan succinate 100 MG tablet 100 mg PO PRN PRNRF: 0 lamotrigine 100 MG tablet 400 mg PO DAILY RF: 0 quetiapine [Seroquel] 200 MG tablet 200 mg PO HS RF: 0 levalbuterol tartrate [Xopenex HFA] 15 GM HFA aerosol inhaler 2 puff Inhalation PRN PRNRF: 0 riboflavin (vitamin B2) [Vitamin B-2] 100 mg tablet 200 mg PO BID RF: 0 magnesium oxide 500 mg capsule 500 mg PO HS RF: 0 Discontinued clindamycin HCl 150 mg capsule 450 mg PO QID 10 Days Qty: 120 RF: 0 Discharge Instructions Instructions: Cellulitis (DC) Additional Instructions: Keep an ice bag on the incision. 20 minutes on and 20 minutes off. Ice keeps the swelling down and swelling causes pain. Make sure you wrap the ice pack in a towel and don't apply directly to the skin. -Irrigate wound with saline solution twice a day. Pack with packing daily. -Follow-up with Dr. Beck next wednesday -supplies: Sterile saline, syringe for irrigation, cotton-tipped applicator, packing material, tape, 4 x 4 gauze pads. Wash hands thoroughly before doing the packing and after the packing. -regular diet -Yogurt daily while on antibiotic -It is ok to shower. No bathe, soaking, swimming or hot tubs -Keep ice on the incision. Ice keeps the swelling down and swelling is what causes pain. -You may find that your appetite is smaller. Eat 3-6 small meals throughout the day. It is important to drink lots of water after surgery, 6-10 glasses a day. -We do want you up walking, at least 5-6 times per day. This is very important to prevent pneumonia and blood clots. You can climb stairs, take them slowly. -You may find that you are tired after surgery- this is normal. -please do not smoke for a minimum of 72 hours after surgery. Your health care provider has covered your wound with a wet-to-dry dressing. With this type of dressing, a wet (or moist) gauze dressing is put on your wound and allowed to dry. Wound drainage and tissue can be removed when you take off the old dressing. Follow any instructions you are given on how to change the dressing. Use this sheet as a reminder. What to Expect at Home Your provider will tell you how often you should change your dressing at home. As the wound heals, you should not need as much gauze or packing gauze. Removing the Old Dressing Follow these steps to remove your dressing: ? Wash your hands thoroughly with soap and warm water before and after each dressing change. Remove the old dressing. If it is sticking to your skin, wet it with warm water to loosen it. ? Remove the gauze pads or packing tape from inside your wound. Changing Your Dressing Follow these steps to put a new dressing on: ? Place the gauze pads or packing tape in your wound. Carefully fill in the wound and any spaces under the skin. Use a cotton tip applicator to gently push the packing material into the wound. ? Cover the wet gauze or packing tape with a large dry dressing pad. Use tape or rolled gauze to hold this dressing in place. ? Wash your hands again when you are finished. When to Call the Doctor Call your doctor if you have any of these changes around your wound: ? Worsening redness ? More pain ? Swelling ? Bleeding ? It is larger or deeper ? It looks dried out or dark ? The drainage is increasing ? The drainage has a bad smell Also call your doctor if: ? Your temperature is 100.5?F (38?C), or higher, for more than 4 hours ? Drainage is coming from or around the wound ? Drainage is not decreasing after 3 to 5 days ? Drainage is increasing ? Drainage becomes thick, tierney, yellow, or smells bad ? Stand Alone Forms: Nursing Discharge Form Referrals: Charis Beck, [OSTEOPATHIC DOCTOR] - 04/03/20 11:00 am Activity:: No lifting over 10 pounds Equipment/Supplies:: Sterile saline, syringes, Diet:: Normal Diet Discharge Orders Discharge Orders: Discharge Order (Routine); Ordered 03/29/20 Ordered By: Charis Beck Discharge Data Discharge Date/Time-TO BE ENTERED AT DEPARTURE: 03/29/20 12:54 DS: Diagnosis Discharge Diagnosis (1) Abdominal wall cellulitis: Status: Acute (2) Cellulitis: Status: Acute (3) Abscess: Status: Acute
== END 2020-03-29 12:54 | disposition home or self-care (01) | DRG 603 ==
LOC: ER 19:04 → MS 20:20
PROVIDERS: Internal Medicine; Nurse Practitioner Family; Admitting Provider General Practice; Emergency Provider Student in an Organized Health Care Education/Training Program; PCP Nurse Practitioner Family; Visit Provider General Practice
DX: L02.211 Cutaneous abscess of abdominal wall (principal); L03.311 Cellulitis of abdominal wall; F31.9 Bipolar disorder, unspecified; F41.9 Anxiety disorder, unspecified; B95.61 Methicillin susceptible Staphylococcus aureus infection as the cause of diseases classified elsewhere; Z11.59 Encounter for screening for other viral diseases; F90.9 Attention-deficit hyperactivity disorder, unspecified type; J45.909 Unspecified asthma, uncomplicated; K76.0 Fatty (change of) liver, not elsewhere classified; E03.9 Hypothyroidism, unspecified
CPT/HCPCS: 36415; 80048; 80053; 80307; 84145; 87040; 96361; 96365; 96375; 99222; 99231; 99232; 99233; 99238; 99252; 99285; U0003; 81003; 81015; 81025; 82565; 83036; 83735; 84703; 85025; 86140; 87086; 99284; J0690; J1885

== ENCOUNTER 2020-06-02 19:50 | Emergency (ER) | payer MEDICAID, SELFPAY ==
[2020-06-02 20:00] VITALS: BP 115/73; PULSE 123; RESP 18; TEMP 37.3; O2SAT 98
--- NOTE | 2020-06-02 20:20 | W.ED.GENAD ---
Discharge Plan Disposition Patient Disposition: HOME Condition: Stable Discharge Details Clinical Impression: Cellulitis, Hidradenitis suppurativa Primary Care Provider: Juan Godinez ED Provider: Charly Ott Home Meds and New Rx's Prescriptions: New amoxicillin-pot clavulanate [Augmentin] 875-125 mg tablet 1 tab PO BID Qty: 14 RF: 0 clindamycin HCl 150 mg capsule 450 mg PO TID 7 Days Qty: 63 RF: 0 prednisone 20 mg tablet 60 mg PO DAILY 4 Days Qty: 12 RF: 0 No Action meclizine 25 MG tablet 25 mg PO DAILY PRNRF: 0 sumatriptan succinate 100 MG tablet 100 mg PO PRN PRNRF: 0 lamotrigine 100 MG tablet 400 mg PO DAILY RF: 0 quetiapine [Seroquel] 200 MG tablet 200 mg PO HS RF: 0 levalbuterol tartrate [Xopenex HFA] 15 GM HFA aerosol inhaler 2 puff Inhalation PRN PRNRF: 0 riboflavin (vitamin B2) [Vitamin B-2] 100 mg tablet 200 mg PO BID RF: 0 magnesium oxide 500 mg capsule 500 mg PO HS RF: 0 tramadol [Ultram] 50 mg tablet 50 mg PO Q6H PRNQty: 7 RF: 0 ibuprofen 600 mg tablet 600 mg PO Q6H PRNQty: 60 RF: 5 Discharge Instructions Additional Instructions: You should be contacted with an appointment for general surgery this week if you have severe worsening pain or fevers return to the emergency department Medical Decision Making 25 yo female comes in with few days of redness in both arm pits and sores. Is unsure if she has had this problem in the past, denies fevers or severe pain. Initial HR in triage 120 but on my exam is 90 and regular. HAs painful nodules in both arm pits with some skin excoriation in both arm pits about 1-2cm in size, 2 in the left arm pit and 3 in the right arm pit, no drainage and no fluctuance, has mild surrounding erythema to the excoriations. Has no drainagel fluid collection on exam. Suspect hidranitis based on presentation, will tx with steroids and anbiotics and refer to general surgery this week for evaluation. Return precautions given. Differential Diagnosis Differential Diagnosis: cellulitis, hidranitis Medical Records Medical records reviewed: Yes I reviewed the patient's medical records. HPI General Mode of arrival: ambulatory. Date/Time Provider Initiated Documentation: 06/02/20 19:51. Limitations to Documentation: no limitations. Information obtained by: patient. History of Present Illness 25 year old F presents to the emergency department with the chief complaint of armpit redness, described as moderate, Patient started experiencing this day(s) (2) and it has been constant. No relieving factors improve symptom(s), No exacerbating factors reported . Patient notes no other symptoms.. Patient did receive the following treatments prior to arrival, none Related Data Home Medications Medication Instructions Recorded Confirmed lamotrigine 400 mg PO DAILY 01/04/13 06/02/20 sumatriptan succinate 100 mg PO PRN PRN 01/04/13 06/02/20 levalbuterol tartrate [Xopenex HFA] 2 puff INHALATION PRN PRN 08/11/14 06/02/20 quetiapine [Seroquel] 200 mg PO HS 08/11/14 06/02/20 meclizine 25 mg PO DAILY PRN tab-cap 06/12/15 06/02/20 magnesium oxide 500 mg PO HS 03/25/20 06/02/20 riboflavin (vitamin B2) [Vitamin 200 mg PO BID 03/25/20 06/02/20 B-2] ibuprofen 600 mg PO Q6H PRN #60 tab 03/29/20 06/02/20 tramadol [Ultram] 50 mg PO Q6H PRN #7 tab 03/29/20 06/02/20 amoxicillin-pot clavulanate 1 tab PO BID #14 tab 06/02/20 [Augmentin] clindamycin HCl 450 mg PO TID 7 Days #63 cap 06/02/20 prednisone 60 mg PO DAILY 4 Days #12 tab 06/02/20 Previous Rx's Medication Instructions Recorded ibuprofen 600 mg PO Q6H PRN #60 tab 03/29/20 tramadol [Ultram] 50 mg PO Q6H PRN #7 tab 03/29/20 amoxicillin-pot clavulanate 1 tab PO BID #14 tab 06/02/20 [Augmentin] clindamycin HCl 450 mg PO TID 7 Days #63 cap 06/02/20 prednisone 60 mg PO DAILY 4 Days #12 tab 06/02/20 Allergies Allergy/AdvReac Type Severity Reaction Status Date / Time Sulfa (Sulfonamide AdvReac Intermediate flatus Unverified 06/02/20 20:14 Antibiotics) General Stated Complaint: Cellulitis GABE: 4 Review of Systems All systems reviewed & are unremarkable except as noted in HPI and below Constitutional Constitutional: Denies chills, Denies fever(s) and Denies weakness Cardiovascular Cardiovascular: Denies chest pain and Denies dyspnea Respiratory Respiratory: Denies cough and Denies dyspnea Gastrointestinal Gastrointestinal: Denies abdominal pain, Denies nausea and Denies vomiting Neurologic Neurologic: Denies weakness [facility] Medical History Acquired subluxation of right patella ADHD Anxiety disorder Asthma Bipolar disorder Fatty liver Hypothyroidism Multiple drug overdose Social History Smoking/Tobacco Use Status: Never Smoking risk assessment performed?: Yes Alcohol Intake: current Alcohol Intake frequency: holidays/special occasions only Drug use: Never Substance use type: does not use Do you feel safe at home: Yes Do you feel safe in your relationship?: Yes Exam Const General: no acute distress Orientation: alert HENMT Head: normal to inspection Ears: external ears normal General nose exam: external nose normal Mouth: moist mucous membranes Eyes General: appearance normal, both eyes and all related structures Neck Neck: normal visual inspection Resp Effort & Inspection: normal respiratory effort and able to speak in complete sentences Cardio Rate: regular rate Skin General skin exam: elasticity normal and turgor normal Neuro General: patient alert and patient oriented x3 Extrem General: normal to inspection Psych Mental Status: mental status grossly normal Course Vital Signs Vital signs: Vital Signs Temperature 37.3 C 06/02/20 20:00 Pulse 123 H 06/02/20 20:00 Respiratory Rate 18 06/02/20 20:00 Blood Pressure 115/73 06/02/20 20:00 Pulse Oximetry 98 06/02/20 20:00 Temperature 37.3 C 06/02/20 20:00 Temperature Source Temporal Artery Scan 06/02/20 20:00 Pulse 123 H 06/02/20 20:00 Respiratory Rate 18 06/02/20 20:00 Respiratory Effort Non-Labored 06/02/20 20:13 Blood Pressure 115/73 06/02/20 20:00 Blood Pressure Position Standing 06/02/20 20:00 Pulse Oximetry 98 06/02/20 20:00 Oxygen Delivery Method Room Air 06/02/20 20:00 Oxygen Flow Rate 0 06/02/20 20:00 Pain Level 6 06/02/20 20:00
--- NOTE | 2020-06-02 20:21 | NUR.NOTE ---
referral sent to general surgury for follow up for ivette Brock Note:
[2020-06-02] MEDS: Amoxicillin 875/Clav. 125 TAB PO (20:26)
[2020-06-02] MEDS: Clindamycin 150 MG CAP 450 MG PO (20:26)
[2020-06-02] MEDS: predniSONE 20 MG TAB 60 MG PO (20:27)
== END 2020-06-02 20:32 | disposition home or self-care (01) ==
PROVIDERS: Emergency Provider Emergency Medicine; PCP Nurse Practitioner Family
DX: L73.2 Hidradenitis suppurativa (principal); L03.111 Cellulitis of right axilla; L03.112 Cellulitis of left axilla
CPT/HCPCS: 99283; J7512

== ENCOUNTER 2020-08-09 12:08 | Outpatient (REF) | payer MEDICAID, SELFPAY | END 2020-08-09 12:09 | disposition home or self-care (01) | LOC: NCHCN 12:08 | PROVIDERS: PCP Nurse Practitioner Family; Visit Provider Physician Assistant Medical | DX: N61.1 Abscess of the breast and nipple (principal) | CPT/HCPCS: 87077; 87070; 87186; 87205 ==

== ENCOUNTER 2023-01-28 12:58 | Outpatient (CLI) | payer MEDICAID, SELFPAY ==
[2023-01-28 09:05] LABS: Calculated LDL 162 mg/dL (<100); Cholesterol 251 mg/dL (<200); HDL Cholesterol 54 mg/dL (40-60); TSH (W/Ref FT4) 1.82 uIU/mL (0.36-3.74); Triglyceride 176 mg/dL (<150)
[2023-01-28 12:21] LABS: Hemoglobin A1C 5.4 % (<5.7)
== END 2023-01-28 12:59 | disposition home or self-care (01) ==
LOC: LBO 13:00
PROVIDERS: Visit Provider Psychiatry & Neurology Psychiatry
DX: F31.32 Bipolar disorder, current episode depressed, moderate (principal); Z79.899 Other long term (current) drug therapy
CPT/HCPCS: 36415; 80061; 83036; 84443

== ENCOUNTER 2024-05-16 16:23 | Outpatient (CLI) | payer MEDICAID, SELFPAY ==
--- NOTE | 2024-05-16 | DI.MRI_ITS ---
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 COMPARISON: CT HEAD WITHOUT CONTRAST from 12/16/2014 CT HEAD WITHOUT CONTRAST from 11/16/2016 FINDINGS: VENTRICLES AND EXTRA AXIAL SPACES: Normal in size and morphology for the patient's age. MIDLINE SHIFT: None. CEREBRAL PARENCHYMA: No focus of restricted diffusion to suggest acute infarct. No space-occupying le elsa identified. HEMORRHAGE: None. BRAINSTEM/CEREBELLUM: Normal. CALVARIUM: Normal. VISUALIZED PARANASAL SINUSES/MASTOIDS:Clear. [place]: Normal flow void. PITUITARY GLAND: Unremarkable. OTHER FINDINGS: None. IMPRESSION: Unremarkable MRI of the brain. DATA REPOSITORY:
== END 2024-05-16 16:43 ==
LOC: DI 16:24
PROVIDERS: Visit Provider Nurse Practitioner Family
DX: F07.81 Postconcussional syndrome (principal)
CPT/HCPCS: 70551

== ENCOUNTER 2024-07-18 10:53 | Outpatient (CLI) | payer MEDICAID, SELFPAY ==
[2024-07-18 12:04] LABS: TSH (W/Ref FT4) 2.01 uIU/mL (0.36-3.74)
[2024-07-18 19:45] LABS: FSH 4.9 mIU/mL (See Note); LH 12.9 mIU/mL (See Note); Prolactin 8.1 ng/mL (See Note)
[2024-07-26 00:56] LABS: 17-Hydroxyprogesterone 84 ng/dL
== END 2024-07-18 10:54 | disposition home or self-care (01) ==
LOC: LBO 10:53
PROVIDERS: Visit Provider Obstetrics & Gynecology
DX: N93.8 Other specified abnormal uterine and vaginal bleeding (principal)
CPT/HCPCS: 36415; 83498; 83001; 83002; 84146; 84443

== ENCOUNTER 2024-07-25 00:18 | Outpatient (CLI) | payer MEDICAID, SELFPAY ==
--- NOTE | 2024-07-25 06:30 | DI.US_ITS ---
Exam(s) US PELVIS EXAM: US PELVIS CLINICAL HISTORY: anatomy,dysfunctional uterine bleeding,n93.8 TECHNIQUE: Transabdominal imaging was performed using standard protocol. COMPARISON: No exams were available for comparison FINDINGS: The patient declined transvaginal imaging. UTERUS: Anteverted. 6.3 x 3.3 x 4.5 cm Endometrium: 10 mm Myometrium: Unremarkable. Cervix: Unremarkable. OVARIES: Right: Cyst or mass: None. Left: Cyst or mass: None. DOPPLER: Color: Symmetric and uniform flow to both ovaries. No hyperemia. CUL-DE-SAC: Free fluid: None. IMPRESSION: 1. Normal-appearing uterus with endometrial stripe within normal limits. 2. Unremarkable bilateral ovaries. DATA REPOSITORY:
== END 2024-07-25 00:38 ==
PROVIDERS: PCP Nurse Practitioner Family; Visit Provider Obstetrics & Gynecology
DX: N93.8 Other specified abnormal uterine and vaginal bleeding (principal)
CPT/HCPCS: 76856